=== PATIENT | male | born 1995 | race Asian ===

== ENCOUNTER 2017-01-16 22:13 | Emergency (ER) | payer OTHER ==
[~2017-01-16] VITALS: Ht 177.8 cm; Wt 59.1 kg
[2017-01-16 22:16] VITALS: TEMP 36.7; Ht 177.8 cm; Wt 59.1 kg
[2017-01-16] MEDS ORDERED: ACETAMINOPHEN 500 MG TAB PO ONE (22:25)
[2017-01-16] MEDS ORDERED: LIDOCAINE/EPINEPH/TETRACAINE 1 EA SYR ONE (22:26)
[2017-01-16] MEDS ORDERED: LIDOCAINE/EPINEPH/TETRACAINE 1 EA SYR EXT STA (22:26)
[2017-01-16] MEDS ORDERED: ONDANSETRON 4MG OD TAB ONE (22:26)
[2017-01-16] MEDS ORDERED: ONDANSETRON 4MG OD TAB PO STA (22:26)
[2017-01-16] MEDS ORDERED: ACETAMINOPHEN 500 MG TAB PO STA (22:26)
[2017-01-16] MEDS ORDERED: ONDANSETRON HOME PACK 4MG OD TAB PO ONE (22:30)
--- NOTE | 2017-01-17 00:04 | EMERGENCY ROOM VISIT NOTE ---
History First contact with patient: 22:19 Chief Complaint: HEAD INJURY (MINOR) Stated Complaint: LACERATION/HEAD INJURY History of Present Illness The patient is a 21 year old male who presents to the Emergency Room with complaints of head injury after he ran into the wall playing basketball tonight. Patient also complains of facial laceration and abrasion to the right eyebrow. Patient complains of headache and feeling lightheaded and nauseous. Pain currently 4 out of 10. Nothing makes it better or worse. No prior concussion. No alcohol or drug use today. Patient denies eye pain, vision problems, balance problems, neck pain, dental pain, chest pain, dyspnea, abdominal pain, numbness, tingling, weakness. Tetanus is current per patient. Review of Systems See HPI for pertinent positives & negatives. A total of 10 systems reviewed and were otherwise negative. Past Medical/Surgical History None Social History Smoking Status: Current Some Day Smoker Smokeless Tobacco Use: No Alcohol Use: none Drug Use: none Occupation Status: [employer] student Current/Historical Medications No Active Prescriptions or Reported Meds Physical Exam Vital Signs Date Time Temp Pulse Resp B/P (MAP) Pulse Ox O2 Delivery O2 Flow Rate FiO2 01/16/17 22:20 18 99 01/16/17 22:16 36.7 119 18 144/96 99 Room Air 99 Physical Exam PHYSICAL EXAM: VITALS: Vitals are noted on the nurse's note and reviewed by myself. Vital signs stable. GENERAL: pleasant male, in no acute distress, nondiaphoretic, well-developed well-nourished. SKIN: 2 cm jagged laceration to the right eyebrow with skin avulsion present and abrasions that appears clean the rest of the skin was without obvious lacerations or abrasions. Capillary reflex less than 2 seconds. HEAD: Normocephalic atraumatic. EARS: External auditory canals clear, tympanic membranes pearly severino without erythema or effusion bilaterally. No hemotympanums. No lopez sign. No mastoid tenderness. EYES: Pupils equal round and reactive to light and accommodation. Conjunctivae without injection, sclerae without icterus. Extraocular movements intact. NOSE: Patent, turbinates without inflammation or discharge. No sinus tenderness. No septal hematoma or bleeding. FACE: Right upper outer facial bone tenderness. Full range of motion of the jaw without tenderness. MOUTH: Mucous membranes moist. Pharynx without erythema or exudate. Uvula midline. Airway patent. Tongue does not deviate. NECK: Supple without nuchal rigidity. Cervical spine is nontender. Full range of motion of the neck without tenderness. No JVD. HEART: Regular rate and rhythm without murmurs gallops or rubs. LUNGS: Clear to auscultation bilaterally without wheezes, rales or rhonchi. No dullness to percussion. No retractions or accessory muscle use. No chest wall tenderness. ABDOMEN: Positive bowel sounds x 4. Normal tympanic percussion. Soft, nontender, without masses or organomegaly. No guarding or rebound tenderness. MUSCULOSKELETAL: No tenderness of the thoracic or lumbar spine. Full range of motion without tenderness to palpation in all extremities. Normal gait. Strength 5/5 throughout. NEURO: Patient was alert and oriented to person place and time. Normal sensation to light and sharp touch. Negative Romberg and pronator drift. Cerebellar function intact. No focal neurological deficits. Medical Decision & Procedures Medications Administered Medications (Trade) Dose Ordered Sig/[facility] Route Start Time Stop Time Status Last Admin Dose Admin Acetaminophen (Tylenol Tab) 1,000 mg STK-MED ONCE PO 01/16/17 22:25 01/16/17 22:26 DC 01/16/17 22:29 1,000 MG Ondansetron HCl (Zofran Odt) 4 mg STK-MED ONCE .ROUTE 01/16/17 22:26 01/16/17 22:27 DC 01/16/17 22:28 4 MG Tetracaine/ Epinephrine/ Lidocaine (L.e.t. Gel 4%/ 1:100/0.5%) 1 ea STK-MED ONCE .ROUTE 01/16/17 22:26 01/16/17 22:27 DC 01/16/17 22:28 1 EA Ondansetron HCl (ZOFRAN ODT 4MG Home Pack) 1 homepack UD ONCE PO 01/16/17 22:30 01/16/17 22:31 DC 01/16/17 23:28 1 HOMEPACK Procedure Location: Right eyebrow Total length: 2 cm, jagged Complexity: simple Verbal consent was obtained after the risks and benefits were explained, including but not limited to bleeding, scarring, infection, pain, and bone/joint /nerve damage. At this time, the risks of the procedure are less than the risks of NOT performing the procedure. A time out was taken and the correct patient and site identified. The skin was prepped with betadine. The target area was anesthetized with LET Copious irrigation was performed using NSS. The skin was re-prepped with betadine and a sterile field set. The wound was explored for foreign bodies and none found. Examination revealed no injury to deep structures such as tendons, bone, or significant blood vessels. Debridement was not performed. The wound edges were approximated using 4, 6-0 simple interrupted nylon sutures. Hemostasis and excellent approximation was achieved. Antibacterial ointment and a sterile dressing applied. Detailed wound care instructions and signs and symptoms of infection reviewed with the pt. No complications and the patient tolerated the procedure well. ED Course Prior records/ancillary studies reviewed. Triage Nursing notes reviewed. The patient's history was concerning for traumatic head injury Differential diagnosis: Etiologies such as concussion, contusion, fracture, subdural hematoma, epidural hematoma, intraparenchymal hemorrhage, as well as other traumatic pathologies were entertained. Physical examination findings: As above. ER treatment provided: P.o. Tylenol Zofran ODT On reassessment the patient felt better. Diagnostics interpreted by me: Imaging studies: CT HEAD: No evidence of acute intracranial abnormality or skull fracture. Mild right forehead soft tissue swelling CT FACIAL: No evidence of acute fracture or dislocation. Left maxillary sinus mucous retention cyst or polyp. Right forehead soft tissue swelling Radiologist: Carmela Arrieta M.D. It appears the patient has a concussion with facial laceration and abrasion and facial injury. Laceration was repaired as above. Patient was neurovascularly and neurologically intact. He is well-appearing. He was counseled on head injury signs and symptoms and on laceration care. He was advised to follow-up with health services in a few days or here in the ER sooner for headache, fevers , confusion, worsening signs or symptoms or as needed. He was advised to was still symptomatic in a week to see the concussion clinic here in [facility]. By the evaluation outlined above emergent etiologies such as fracture, subdural hematoma, epidural hematoma, intraparenchymal hemorrhage, as well as others were deemed relatively unlikely. The pt informed about the findings as listed above. All questions were answered and pleased with the treatment. Return instructions were outlined and the patient was discharged in stable condition. Outpatient Prescription Management: Zofran Referral: The patient was referred back to their primary care physician for follow-up in 2 to 3 days for a recheck of the current condition. Medical Decision as above Head Trauma GCS Score: 15 Impression Primary Impression: Concussion Additional Impressions: Facial laceration Facial abrasion Departure Information Dispostion Home / Self-Care Condition GOOD Prescriptions No Active Prescriptions or Reported Meds Referrals [facility] (PCP) Patient Instructions [facility] Additional Instructions Antibiotic ointment and bandage to the areas until healed. Follow up with family doctor or return for any signs of infection (increasing redness, swelling , drainage, or fever). Keep covered when in sun until fully healed then SPF 50 or higher until scar healed. Keep wound clean and dry. Do not allow any crusting or dried blood to accumulate on sutures. If this occurs, use a 1:1 solution of hydrogen peroxide/ water on a Q-tip to clean the wound. Use an antibiotic ointment for 3-4 days, then let wound dry. Suture removal in 5-7 days. Return sooner for any signs of infection (increasing redness, swelling, drainage). Ice and elevate for swelling and pain. Keep covered when in sun until sutures removed then SPF 50 or higher for one year. Vitamin E oil if desired two weeks after suture removal for reduction of scar Read head injury handout and return for any symptoms. Tylenol 1000 mg as needed for pain (Maximum 3000 mg Tylenol in 24 hr period). Avoid alcohol and contact sports/activities for one week and follow up with family doctor prior to returning to these activities if still symptomatic. Ice and elevate head. If your symptoms persist more than a week then follow up with the concussion clinic. Call [phone]. Return to ER sooner for headache, fevers, confusion, worsening signs or symptoms or as needed. Problem Qualifiers Primary Impression: Concussion Encounter type: initial encounter Loss of consciousness presence/duration: without LOC Qualified Codes: S06.0X0A - Concussion without loss of consciousness, initial encounter
[2017-01-17 00:44] VITALS: BP 135/62; PULSE 68; O2SAT 98
--- NOTE | 2017-01-17 06:50 | DIAGNOSTIC IMAGING REPORT ---
HEAD WITHOUT CONTRAST (CT) CLINICAL HISTORY: 21 years-old Male with head/right facial injury. Acute right-sided facial injury status post trauma with laceration. Initial exam. TECHNIQUE: Multiple axial CT images of the head were obtained without contrast. A dose lowering technique was utilized adhering to the principles of ALARA. COMPARISON: CT maxillofacial study of same day FINDINGS: No acute intracranial hemorrhage, midline shift, mass, large territorial ischemia or abnormal extra-axial collection. The calvarium is intact. The paranasal sinuses, mastoid air cells, and middle ear cavities are clear. There is mild right-sided prefrontal and periorbital soft tissue swelling. Negative for opaque foreign body. IMPRESSION: 1. No acute intracranial abnormality. 2. Mild right-sided prefrontal and periorbital soft tissue swelling without opaque foreign body or skull fracture. The above report was generated using voice recognition software. It may contain grammatical, syntax or spelling errors. Electronically signed by: Zaki Brennan M.D. 01/17/2017 6:49 AM Dictated Date/Time: 01/17/2017 6:47 AM
--- NOTE | 2017-01-17 06:55 | DIAGNOSTIC IMAGING REPORT ---
FACIAL BONES-MXILLOFAC WITHOUT CLINICAL HISTORY: 21 years-old Male presenting with head/right facial injury. Acute right-sided facial injury status post trauma. Right forehead laceration. Initial exam. COMPARISON STUDY: CT head of same day TECHNIQUE: High-resolution CT scan of the facial bones is performed. Images are reviewed in the axial, sagittal, and coronal planes. IV contrast was not administered for this examination. A dose lowering technique was utilized adhering to the principles of ALARA. CT DOSE: 1092.51 mGy.cm FINDINGS: There is no evidence of facial bone fracture. The bony orbits are intact and the orbital contents are within normal limits. The zygomatic arches, nasal bones, and pterygoid plates are preserved. The maxilla and mandible are intact. The mastoid air cells and middle air cavities are clear. Minimal polypoid mucosal disease of the left maxillary sinus posteriorly is seen, 1.2 cm. Minimal polypoid mucosal disease is also seen within the right maxillary sinus, subcentimeter. There is mild ethmoid sinus disease. The imaged calvarium and upper cervical spine are within normal limits. Partially imaged brain parenchyma is within normal limits. Mild right-sided prefrontal and periorbital soft tissue swelling is present without opaque foreign body. IMPRESSION: 1. No acute facial bone fracture or dislocation. 2. Mild right prefrontal and periorbital soft tissue swelling without opaque foreign body. 3. Mild paranasal sinus disease. The above report was generated using voice recognition software. It may contain grammatical, syntax or spelling errors. Electronically signed by: Zaki Brennan M.D. 01/17/2017 6:54 AM Dictated Date/Time: 01/17/2017 6:49 AM
== END 2017-01-17 00:46 | disposition home or self-care (01) ==
LOC: C.EDC 22:15
DX: S06.0X0A Concussion without loss of consciousness, initial encounter (principal); S01.81XA Laceration without foreign body of other part of head, initial encounter; W22.09XA Striking against other stationary object, initial encounter; Y93.67 Activity, basketball; Y99.8 Other external cause status; F17.200 Nicotine dependence, unspecified, uncomplicated

== ENCOUNTER 2017-02-01 14:45 | Emergency (ER) | payer OTHER ==
[~2017-02-01] VITALS: Ht 177.8 cm; Wt 65.3 kg
[2017-02-01 14:47] VITALS: TEMP 36.6; Ht 177.8 cm; Wt 65.3 kg
[2017-02-01] MEDS ORDERED: ALBUT/IPRATROP 3MG/0.5MG NEB 3 ML VIAL INH STA (14:59)
[2017-02-01] MEDS ORDERED: IBUPROFEN 600 MG TAB PO STA (14:59)
--- NOTE | 2017-02-01 15:56 | DIAGNOSTIC IMAGING REPORT ---
CHEST 2 VIEWS ROUTINE CLINICAL HISTORY: 21 years-old Male presenting with cough, runny nose, headache, congestion for 3 weeks. TECHNIQUE: PA and lateral views of the chest were obtained. COMPARISON: None. FINDINGS: Cardiomediastinal silhouette normal. Lungs and pleural spaces clear. Osseous structures normal. Upper abdomen normal. IMPRESSION: 1. No acute cardiopulmonary disease. Electronically signed by: Jacques Villa M.D. 02/01/2017 3:55 PM Dictated Date/Time: 02/01/2017 3:54 PM
[2017-02-01] MEDS ORDERED: BENZ1CAP90 PO (16:08)
[2017-02-01] MEDS ORDERED: ALBU18002 INH (16:08)
--- NOTE | 2017-02-01 16:12 | EMERGENCY ROOM VISIT NOTE ---
ED Visit Note First contact with patient: 14:52 CHIEF COMPLAINT: Cough, runny nose, headache HISTORY OF PRESENT ILLNESS: This 21-year-old male patient presents to the emergency department complaining of 3 week history of runny nose, dry cough, headache. The patient states he did have a little bit of a sore throat, but now that has improved except for when coughing. The patient denies any earache. He states he has not had a fever, but didn't think that he had chills approximately one week ago. The patient states he also recently had a concussion, when he got kicked in the head with a soccer ball approximately 1-2 weeks ago. The patient has taken no medication for his symptoms. He states his drainage from his nose has been clear to yellow and runny. The patient states on occasion he has coughed up some yellow sputum. The patient has not seen anybody for his symptoms. He states he believes he has a cold, but is concerned that it could be something worse because his symptoms have lasted. REVIEW OF SYSTEMS: A 10 system review of systems was performed with positives and pertinent negatives listed in the history of present illness. All other systems were reviewed and are negative. ALLERGIES: None MEDICATIONS: None PMH: None SOCIAL HISTORY: The patient is a [employer] student. He lives locally with his roommate. The patient states he does smoke cigarettes on occasion, and rarely uses alcohol. The patient denies drug use. PHYSICAL EXAM: VITALS: Vitals are noted on the nurse's note and reviewed by myself. Vital signs stable. GENERAL: This is a 21-year-old male, in no acute distress, nondiaphoretic , well-developed well-nourished. SKIN: The skin was without rashes, erythema, edema, or bruising. There is no tenting of the skin. Capillary reflex less than 2 seconds. HEAD: Normocephalic atraumatic. EARS: External auditory canals clear, tympanic membranes pearly severino without erythema or effusion bilaterally. EYES: Pupils equal round and reactive to light and accommodation. Conjunctivae without injection, sclerae without icterus. Extraocular movements intact. NOSE: Patent, turbinates with mild erythema and inflammation, but there is some watery drainage. No sinus tenderness. MOUTH: Mucous membranes moist. Tonsils are not enlarged. Pharynx without erythema or exudate. Uvula midline. Airway patent. Tongue does not deviate. NECK: Supple without nuchal rigidity. No lymphadenopathy. No thyromegaly. Cervical spine is nontender. No JVD. HEART: Regular rate and rhythm without murmurs gallops or rubs. LUNGS: Mild wheezing noted in the right lung. Otherwise, lungs were clear to auscultation without rales or rhonchi. No dullness to percussion. No retractions or accessory muscle use. NEURO: Patient was alert and oriented to person place and time. Normal sensation to light and sharp touch. No focal neurological deficits. RADIOLOGY: CXR: CHEST 2 VIEWS ROUTINE CLINICAL HISTORY: 21 years-old Male presenting with cough, runny nose, headache, congestion for 3 weeks. TECHNIQUE: PA and lateral views of the chest were obtained. COMPARISON: None. FINDINGS: Cardiomediastinal silhouette normal. Lungs and pleural spaces clear. Osseous structures normal. Upper abdomen normal. IMPRESSION: 1. No acute cardiopulmonary disease. EMERGENCY DEPARTMENT COURSE: She was seen and evaluated as above. He was given a breathing treatment in the emergency department, and did note significant improvement in his symptoms. Chest x-ray was performed and reviewed by myself and radiologist. This was negative for acute cardiopulmonary disease. Discharge instructions were reviewed with the patient at bedside. I did discuss with him how to use an inhaler and how to take benzonatate for coughing. I encouraged the patient to follow up if no improvement in one week. The patient was discharged home in good condition. DIFFERENTIAL DIAGNOSIS: Bronchitis, pneumonia, upper respiratory infection, acute sinusitis, acute pharyngitis, strep pharyngitis, and others. DIAGNOSIS: Acute bronchitis DISCHARGE INSTRUCTIONS & TREATMENT: You were seen in the emergency department today for acute bronchitis. You were given a breathing treatment of Albuterol/Ipratropium in the ED and did note improvement in your symptoms. CXR did rule out pneumonia. You were given an albuterol inhaler to use 2 puffs, every 4-6 hours for wheezing. You were also prescribed Benzonatate to help with coughing. Use this as directed , as needed. The mainstay of treatment for upper respiratory infections/bronchitis is symptomatic treatment. This can be done utilizing Sudafed, Zyrtec once daily, and ibuprofen as directed for swelling in the sinuses. You should take Zyrtec at night, as it may make you sleepy. You should drink plenty of water and stay well hydrated. You may want to consider vitamin C supplementation to help boost the immunity. Zinc and echinacea can also help boost immunity. Ibuprofen(Motrin, Advil) may be used for fever or pain. Use 600mg every six hours as needed. Take with food. Avoid using more than 2400mg in a 24 hour period. Do not use 2400mg per day for more than three consecutive days without physician direction. Prolonged inappropriate use can lead to stomach upset or ulcers. You were given a prescription for this medication. (AND/OR) Acetaminophen(Tylenol) may be used for fever or pain. Use 1000mg every six hours as needed. Avoid using more than 3000mg in a 24 hour period. If you continue to experience symptoms after another week, or if your symptoms worsen, please follow-up for further evaluation and treatment. Follow-up with [facility] in 1 week for re-check of your symptoms. Follow-up in the ED if your symptoms worsen, you begin experiencing fever, worsening chills, coughing up purulent or blood sputum, difficulty breathing, nausea, vomiting, purulent drainage, or other symptoms do not relieved with OTC medication or prescribed medication. Current/Historical Medications Scheduled Benzonatate (Tessalon Perles), 200 MG PO TID Scheduled PRN Albuterol Sulfate (Proair Respiclick), 2 PUFFS INH Q4 PRN for Wheezing Allergies Coded Allergies: No Known Allergies (Unverified , 02/01/17) Vital Signs Date Time Temp Pulse Resp B/P (MAP) Pulse Ox O2 Delivery O2 Flow Rate FiO2 02/01/17 16:25 86 18 123/69 97 02/01/17 14:47 98 Room Air 02/01/17 14:47 36.6 106 18 129/86 97 Room Air Medications Administered Medications (Trade) Dose Ordered Sig/[facility] Route Start Time Stop Time Status Last Admin Dose Admin Ibuprofen (Motrin Tab) 600 mg NOW STAT PO 02/01/17 14:59 02/01/17 15:05 DC 02/01/17 15:04 600 MG Albuterol/ Ipratropium (Duoneb) 3 ml NOW STAT INH 02/01/17 14:59 02/01/17 15:05 DC 02/01/17 15:05 3 ML Departure Information Impression Primary Impression: Acute bronchitis Dispostion Home / Self-Care Condition GOOD Prescriptions Benzonatate (Tessalon Perles) 200 Mg Cap 200 MG PO TID, #30 CAP Prov: Marie Gallegos PA-C 02/01/17 Albuterol Sulfate (Proair Respiclick) 108 Mcg/Act Aer 2 PUFFS INH Q4 Y for Wheezing, #1 INHALER Prov: Marie Gallegos PA-C 02/01/17 Referrals No Doctor, Assigned (PCP) Patient Instructions Bronchitis Acute, My [facility] Additional Instructions You were seen in the emergency department today for acute bronchitis. You were given a breathing treatment of Albuterol/Ipratropium in the ED and did note improvement in your symptoms. CXR did rule out pneumonia. You were given an albuterol inhaler to use 2 puffs, every 4-6 hours for wheezing. You were also prescribed Benzonatate to help with coughing. Use this as directed , as needed. The mainstay of treatment for upper respiratory infections/bronchitis is symptomatic treatment. This can be done utilizing Sudafed, Zyrtec once daily, and ibuprofen as directed for swelling in the sinuses. You should take Zyrtec at night, as it may make you sleepy. You should drink plenty of water and stay well hydrated. You may want to consider vitamin C supplementation to help boost the immunity. Zinc and echinacea can also help boost immunity. Ibuprofen(Motrin, Advil) may be used for fever or pain. Use 600mg every six hours as needed. Take with food. Avoid using more than 2400mg in a 24 hour period. Do not use 2400mg per day for more than three consecutive days without physician direction. Prolonged inappropriate use can lead to stomach upset or ulcers. You were given a prescription for this medication. (AND/OR) Acetaminophen(Tylenol) may be used for fever or pain. Use 1000mg every six hours as needed. Avoid using more than 3000mg in a 24 hour period. If you continue to experience symptoms after another week, or if your symptoms worsen, please follow-up for further evaluation and treatment. Follow-up with S in 1 week for re-check of your symptoms. Follow-up in the ED if your symptoms worsen, you begin experiencing fever, worsening chills, coughing up purulent or blood sputum, difficulty breathing, nausea, vomiting, purulent drainage, or other symptoms do not relieved with OTC medication or prescribed medication. School Instructions Return To School: 1 day Problem Qualifiers Primary Impression: Acute bronchitis Bronchitis organism: unspecified organism Qualified Codes: J20.9 - Acute bronchitis, unspecified
[2017-02-01 16:25] VITALS: BP 123/69; PULSE 86; O2SAT 97
== END 2017-02-01 16:26 | disposition home or self-care (01) ==
LOC: C.EDB 14:47
DX: J20.9 Acute bronchitis, unspecified (principal)